=== PATIENT | male | born 1985 | race Hispanic/Latino ===

== ENCOUNTER 2022-11-11 11:08 | Emergency (ER) | payer OTHER ==
[~2022-11-11] VITALS: Ht 182.9 cm; Wt 212.3 kg
[2022-11-11 11:31] LABS: BASOPHILS % (AUTO) 0.5 % (0.0-5.0); EOSINOPHILS % (AUTO) 2.4 % (0.0-8.0); HEMATOCRIT 40.9 % (42-54); MEAN CORPUSCULAR HGB CONC 32.5 g/dL (32.0-36.0); MEAN CORPUSCULAR VOLUME 73.7 fL (79-99); MONOCYTES % (AUTO) 6.6 % (3.0-13.0); NEUTROPHILS % (AUTO) 74.3 % (40.0-77.0); PLATELET COUNT (AUTO) 211 K/uL (130-400); RED BLOOD CELL COUNT(AUTO) 5.55 MIL/uL (4.50-6.20); WHITE BLOOD COUNT (AUTO) 6.6 K/uL (4.8-10.8)
[2022-11-11 11:49] LABS: ALBUMIN 3.5 g/dL (3.5-5.0); CREATININE 0.6 mg/dL (0.5-1.5); MAGNESIUM 1.8 mg/dL (1.80-2.40); POTASSIUM 4.9 mmol/L (3.5-5.1); TOTAL PROTEIN, SERUM 7.6 g/dL (6.0-8.3)
[2022-11-11 12:03] LABS: B-TYPE NATRIURETIC PEPTIDE 36 pg/mL (0-100)
[2022-11-11] MEDS ORDERED: KETOROLAC 30MG VIAL (30MG/ML) IVP SCH (12:30)
[2022-11-11] MEDS ORDERED: IBUP-2077 PO (14:02)
[2022-11-11 14:33] VITALS: BP 125/73
== END 2022-11-11 14:34 | disposition home or self-care (01) ==
LOC: EDH 11:08
DX: R07.89 Other chest pain (principal); I10 Essential (primary) hypertension; E78.00 Pure hypercholesterolemia, unspecified; E11.9 Type 2 diabetes mellitus without complications
CPT/HCPCS: 99285; 96374; 71045; 83735; 84484; 80053; 83880; 85025; 36415; 93005; J1885

== ENCOUNTER 2024-08-02 13:49 | Emergency (ER) | payer SELFPAY ==
[~2024-08-02] VITALS: Ht 182.9 cm; Wt 221.4 kg
[~2024-08-02 13:49] MED LIST: IBUP-2077 PO
[2024-08-02] MEDS: HYDROcodone/APAP 5/325 1 TAB TABLET PO ONE (14:55)
[2024-08-02] MEDS: ketOROlac 15MG/ML VIAL (15MG/ML) IM ONE (14:56)
--- NOTE | 2024-08-02 15:08 | HMCIMG ---
KNEE 3VWS LT HISTORY: Pain and injury COMPARISON: None TECHNIQUE: 3 images of left knee were obtained. FINDINGS: There is no acute displaced fracture or dislocation. Degenerative changes are seen. IMPRESSION: 1. Findings as described above.
[2024-08-02] MEDS ORDERED: IBUP-2077 PO (15:13)
--- NOTE | 2024-08-02 15:14 | ERN ---
ED Note History of Present Illness Stated Complaint: L KNEE PAIN Chief Complaint: Lower Extremity Pain/Injury Time Seen by MD: 14:48 Dictation: PATIENT IS A 39-YEAR-OLD MALE HERE WITH COMPLAINTS OF POSTERIOR LEFT KNEE PAIN AFTER HE WAS WALKING AT WORK. HE STATES HE WAS SIMPLY WALKING AND WENT TO TURN AND WHEN HE DID HE FELT TOO LARGE POPS IN THE POSTERIOR LEFT KNEE. HE WAS UNABLE TO WEIGHT BEAR. NO DEFORMITY NOTED, SKIN IS INTACT. DISTAL NEUROVASCULAR CMS INTACT. HE HAS NOT TAKEN ANYTHING PRIOR TO ARRIVAL FOR PAIN. STATES HE HAS NOT HAD ANY PRIOR SURGERIES OR INJURIES TO THE KNEE. PATIENT IS NOTED TO BE MORBIDLY OBESE, WEIGHS 221.4 KILOS Allergies: Coded Allergies: No Known Drug Allergies (Verified Allergy, 10/29/11) Home Meds Active Scripts Ibuprofen (Ibuprofen 800 mg Tab) 800 Mg Tab, 800 MG PO Q6H PRN for PAIN, #30 TAB 0 Refills Prov:MARITZA MORALES MD 11/11/22 Past Medical History Past Medical History: GERD, Hypertension, Other Additional Past Medical Hx: MORBID OBESITY Surgical History: None Social History: Negative RN Note Reviewed/Agreed w/PFSH: Yes Review of System Dictation CONSTITUTIONAL: NEGATIVE EXCEPT FOR HPI HEAD/FACE: NEGATIVE EXCEPT FOR HPI EENT: NEGATIVE EXCEPT FOR HPI RESPIRATORY: NEGATIVE EXCEPT FOR HPI GASTROINTESTINAL/ABDOMINAL: NEGATIVE EXCEPT FOR HPI GENITOURINARY: NEGATIVE EXCEPT FOR HPI MUSCULOSKELETAL: NEGATIVE EXCEPT FOR HPI POSTERIOR LEFT KNEE PAIN INTEGUMENTARY: NEGATIVE EXCEPT FOR HPI NEUROLOGICAL/PSYCH: NEGATIVE EXCEPT FOR HPI HEMATOLOGIC/LYMPHATIC: NEGATIVE EXCEPT FOR HPI ALL SYSTEMS NEGATIVE, EXCEPT NOTED ABOVE. 13 POINT REVIEW OF SYSTEMS ASSESSED AND ALL NEGATIVE EXCEPT FOR ABOVE. Initial Vital Sign VS Vital Signs Date Time Temp Pulse Resp B/P (MAP) Pulse Ox O2 Delivery O2 Flow Rate FiO2 08/02/24 13:50 97.9 79 14 139/79 96 Room Air 0 Physical Exam Dictation VITAL SIGNS REVIEWED GENERAL APPEARANCE: ALERT, ORIENTED X 3, N= MODERATE ACUTE DISTRESS, WELL DEVELOPED, NOURISHED. MORBID OBESITY HEAD AND FACE: NON-TRAUMATIC. EYES: PERRL, PINK CONJUNCTIVAS, EYELID NO TRAUMA, ANTERIOR CHAMBER WITH ARCUS SENILIS. EARS: PINNAS INTACT AND NO SIGNS OF TRAUMA OR ERYTHEMA EAR CANALS CLEAR AND NO DISCHARGE TM NO ERYTHEMA NOSE: NO DISCHARGE, NO BLEEDING. OROPHARYNX: MOUTH NORMAL, TONGUE PINK, PHARYNX CLEAR,NO ERYTHEMA, TONSILS NO EXUDATES, NO ABSCESSES NOTED, MUCOUS MEMBRANE MOIST NECK: SUPPLE, NON-TENDER, NO THYROMEGALY, NO MASSES, NO JVD, NO BRUITS BREAST:DEFERRED CHEST:NO TENDERNESS, NO CREPITUS, NO PARADOXICAL MOVEMENT, NO RETRACTIONS LUNGS:CLEAR, WELL-VENTILATED, SYMMETRIC, NO RALES, NO WHEEZING, NO RHONCHI, NO STRIDOR, GOOD BREATH SOUNDS BILATERALLY HEART: REGULAR RATE, REGULAR RHYTHM, NO MURMUR, NO GALLOPS VASCULAR: NO PERIPHERAL EDEMA, ABDOMEN: SOFT, POSITIVE BOWEL SOUNDS, NONDISTENDED, NO GUARDING, NONTENDER, NO REBOUND, NO MASSES NO HEPATOMEGALY, NO SPLENOMEGALY, NO BECERRA'S SIGN, NO HERNIAS. RECTAL: DEFERRED GENITAL: DEFERRED NEUROLOGICAL: NORMAL SPEECH, MOTOR FUNCTION INTACT, SENSORY FUNCTION INTACT MUSCULOSKELETAL: NECK NONTENDER, FULL RANGE OF MOTION, BACK NONTENDER, FULL RANGE OF MOTION, EXTREMITIES: MILD POSTERIOR POPLITEAL TENDERNESS LEFT WITH PALPATION. PATELLA GROSSLY INTACT. DISTAL NEUROVASCULAR CMS INTACT. EXAM IS DIFFICULT DUE TO BODY HABITUS SKIN: COLOR PINK, DRY, NO TURGOR, NO RASH, NO LACERATIONS, NO ABRASIONS, NO CONTUSIONS. LYMPHATIC: DEFERRED Results (Laboratory/Radiology) Laboratory/Radiology FIFTEEN 10 LEFT KNEE X-RAY NEGATIVE Labs Reviewed?: Yes ED Course ED Course Orders Procedure Category Date Status Time Knee 3vws Lt RAD 08/02/24 Resulted 13:59 Ketorolac PHA 08/02/24 Complete Tromethamine 15mg/Ml 14:30 Hydrocodone/Apap PHA 08/02/24 Complete 5/325 ([place] 5/325mg) 14:30 Crutches W/Training CPOE 08/02/24 Transmitted (Er) 15:08 Current Medications Medications (Trade) Dose Ordered Sig/Eddie Route PRN Reason Start Time Stop Time Status Last Admin Dose Admin Acetaminophen/ Hydrocodone Bitart (NORco 5/325MG) 1 tab ONCE ONCE PO 08/02/24 14:30 08/02/24 14:31 DC 08/02/24 14:55 Ketorolac Tromethamine (toRADol) 15 mg ONCE ONCE IM 08/02/24 14:30 08/02/24 14:31 DC 08/02/24 14:56 Vital Signs Date Time Temp Pulse Resp B/P (MAP) Pulse Ox O2 Delivery O2 Flow Rate FiO2 08/02/24 13:50 97.9 79 14 139/79 96 Room Air 0 1510/PATIENT WILL BE DISCHARGED HOME ON CRUTCHES UNTIL THAT I DO NOT HAVE AN IMMOBILIZER THAT WILL FIT HIS LEG DUE TO BODY HABITUS. WE WILL BE TOLD TO VERY INTO FOLLOW UP WITH DR. RADHA CORDERO, CALL FOR AN APPOINTMENT IN NEXT 1-2 DAYS Medical Decision Making MDM MEDICAL DISCHARGE MAKING BASED ON X-RAY OF LEFT KNEE AND PAIN MANAGEMENT. X-RAY IS NEGATIVE DIAGNOSIS WE WILL BE INTERNAL DERANGEMENT LEFT KNEE UNABLE TO FIT PATIENT WITH KNEE IMMOBILIZER DUE TO BODY HABITUS DISCHARGED HOME WITH CRUTCHES AND TOLD TO FOLLOW UP WITH DR. RADHA CORDERO DX & DISP Disposition: Discharge Departure Impression: Primary Impression: Derangement of left knee Condition: Stable Scripts Ibuprofen (Ibuprofen 800 mg Tab) 800 Mg Tab 800 MG PO Q8H PRN for fever or pain, #30 TAB 0 Refills Prov: YESSENIA DE LA CRUZ DIRECTOR [employer] 08/02/24 Additional Instructions: FOLLOW-UP WITH PRIMARY CARE PROVIDER IN 1 TO 2 DAYS. TAKE MEDICATIONS DIRECTED HERE IN THE EMERGENCY ROOM. OKAY TO CONTINUE HOME MEDICATIONS UNLESS OTHERWISE DISCUSSED DURING YOUR VISIT IN THE EMERGENCY ROOM TODAY. RETURN TO YOUR NEAREST EMERGENCY ROOM IF SYMPTOMS WORSEN OR IF THERE IS NO IMPROVEMENT. CALL 911 IF YOU NEED IMMEDIATE ASSISTANCE. TAKE TYLENOL OR MOTRIN OVER-THE- COUNTER NEEDED AND IF NO CONTRAINDICATIONS ARE PRESENT. INCREASE ORAL HYDRATION. A WOUND CULTURE OR URINE CULTURE WAS ORDERED HERE IN THE EMERGENCY ROOM DEPARTMENT PLEASE FOLLOW-UP WITH PRIMARY CARE PROVIDER AND ADVISE THEM TO GET REPEAT PORTS FROM OUR FACILITY. IF YOU HAD ANY RIAN WRAP/SPLINTS THAT WERE APPLIED HERE, PLEASE DO NOT REMOVE THEM UNTIL YOU SEE YOUR PRIMARY CARE OR SPECIALTY. CRUTCHES AND NO WEIGHT-BEARING TO LEFT KNEE UNTIL CLEARED BY ORTHOPEDIC SURGEON, CALL FOR AN APPOINTMENT TOMORROW. COOL COMPRESSES TO PAIN THREE TO 4 TIMES A DAY. Referrals: SELF,REFERRAL (PCP) RADHA CORDERO MD Time of Disposition: 15:12 I have reviewed the case, and I agree with, Diagnosis and Plan YESSENIA DE LA CRUZ NP Aug 02, 2024 15:14
[2024-08-02 15:24] VITALS: BP 131/76; PULSE 78; RESP 18; TEMP 97.9; O2SAT 96
--- NOTE | 2024-08-02 15:30 | NUR ---
CRUTCHES UNAVAILABLE WIEGHT RESTRICTIONS. PT WAS ABLE TO STAND AND SIT IN WHEELCHAIR
== END 2024-08-02 15:43 | disposition home or self-care (01) ==
LOC: EDH 13:49
DX: M23.92 Unspecified internal derangement of left knee (principal); K21.9 Gastro-esophageal reflux disease without esophagitis; E66.01 Morbid (severe) obesity due to excess calories; I10 Essential (primary) hypertension
CPT/HCPCS: 99284; 73562; 96372; J1885